=== PATIENT | male | born 1940 | race Caucasian/White ===

== ENCOUNTER → 2024-10-11 10:43 | Outpatient (CLI) | payer MEDICARE, BC, SELFPAY ==
--- NOTE | 2024-10-11 10:45 | DI.RAD.S_ITS ---
PROCEDURE: XR CHEST 2V INDICATIONS: Shortness of breath, eval for effusion or air space disease TECHNIQUE: 2 views of the chest were acquired. COMPARISON: None. FINDINGS: Surgical changes and devices: Median sternotomy wires are seen. Lungs and pleura: Increased bronchovascular markings in bilateral hilar region are seen. Ill-defined airspace opacity is seen in bilateral perihilar infrahilar region. Hazy ground-glass opacity throughout bilateral lung [place] are also seen suggestive of pulmonary edema. No pleural effusions or pneumothorax. Mediastinum: Mediastinal contours are normal. Heart size is enlarged. Bones and chest wall: No suspicious bony abnormalities. Soft tissues appear unremarkable. IMPRESSION: Finding is suggestive of CHF and pulmonary edema. Cannot rule out bilateral perihilar and infrahilar infiltrates. No significant pleural effusion. No gross pneumothorax. Dictated by: Sesar Sharpe M.D. on 10/11/2024 at 13:48 Approved by: Sesar Sharpe M.D. on 10/11/2024 at 13:49
== END ==
PROVIDERS: PCP Family Medicine; Referring Provider Internal Medicine Critical Care Medicine; Visit Provider Internal Medicine Critical Care Medicine
DX: J96.11 Chronic respiratory failure with hypoxia (principal); R06.02 Shortness of breath; I51.7 Cardiomegaly
CPT/HCPCS: 71046; 99215

== ENCOUNTER → 2025-02-10 14:38 | Outpatient (CLI) | payer MEDICARE, BC, SELFPAY | LOC: RESP 14:38 | PROVIDERS: PCP Family Medicine; Referring Provider Internal Medicine Critical Care Medicine; Visit Provider Internal Medicine Critical Care Medicine | DX: R06.02 Shortness of breath (principal); Z87.891 Personal history of nicotine dependence; R94.2 Abnormal results of pulmonary function studies | CPT/HCPCS: 94060; 94726; 94729 ==